=== PATIENT | female | born 1995 | race Caucasian/White ===

== ENCOUNTER 2019-02-09 04:30 | Inpatient (IN) ==
[2019-02-09] MEDS ORDERED: MAGNESIUM SULFATE 4 GM/S.W.I. 4 GM/100 ML IVPB IV ONE (04:38)
[2019-02-09] MEDS: LR 1,000 ML IV SCH ×4 (05:00→18:32)
[2019-02-09] MEDS ORDERED: APRESOLINE ONE (05:19)
[2019-02-09] MEDS ORDERED: APRESOLINE IV ONE ×2 (05:20→05:46)
[2019-02-09] MEDS ORDERED: CELESTONE SOLUSPAN IM ONE (05:25)
[2019-02-09] MEDS ORDERED: MAGNESIUM SULFATE 40 GM/S.W.I. 40 GM/1,000 ML IV.SOLN IV SCH (05:30)
[2019-02-09 06:02] LABS: BASO# 0.02 X1000 (0.0-0.2); BASO% 0.1 % (0.0-0.8); HEMATOCRIT 42.4 % (37.0-47.0); HEMOGLOBIN 15.6 g/dL (12.0-16.0); IMM GRAN# 0.06 X1000 (0.0-0.04); IMM GRAN% 0.3 % (0.0-0.5); LYMPH# 0.95 X1000 (1.2-3.4); LYMPH% 5.3 % (20.5-51.1); MCH 32.6 PG (27-31); MCHC 36.8 g/dL (33-37); MCV 88.7 FL (81-99); MONO# 0.43 X1000 (0.11-0.59); MONO% 2.4 % (1.7-9.3); MPV 10.4 FL (7.4-10.4); NEUT# 16.34 X1000 (1.4-6.5); NEUT% 91.9 % (42.2-75.2); PLT 258 X1000 (130-400); RBC 4.78 XMIL (4.2-5.4); RDW 12.2 % (11.5-14.5)
[2019-02-09 06:05] LABS: AGAP 16; ALBUMIN 2.7 g/dL (3.5-5.0); ALKALINE PHOSPHATASE 149 U/L (32-104); BUN 14 mg/dL (8-22); CALCIUM 8.4 mg/dL (8.8-10.2); CHLORIDE 103 mmol/L (98-107); COSMO 272; CREATININE 0.7 mg/dL (0.5-0.9); ESTIMATED GFR > 60; GLUCOSE 121 mg/dL (70-104); GOT 169 U/L (10-30); GPT 89 U/L (10-36); POTASSIUM 4.8 mmol/L (3.5-5.1); SODIUM 135 mmol/L (136-145); TCO2 17 mmol/L (25-35); TOTAL PROTEIN 5.2 g/dL (6.3-8.3); URIC ACID 6.5 mg/dL (2.4-5.7)
[2019-02-09] MEDS ORDERED: LABETALOL IV ONE (06:12)
[2019-02-09 06:30] LABS: BANDS 4 % (0-1); SEGS 89 % (42-75)
[2019-02-09 06:31] LABS: LYMPHS 7 % (21-51); POIKILOCYTOSIS 1+; STOMATOCYTES 1+
--- NOTE | 2019-02-09 06:39 | OB/GYN PROGRESS NOTE ---
Progress Note OB - . Patient Problems: Current Active Problems Problem Status Onset Severe pre-eclampsia Acute OB Progress Note: Laboratory Results - last 24 hr 02/09/19 02/09/19 04:56 04:56 WBC 17.80 H RBC 4.78 Hgb 15.6 Hct 42.4 MCV 88.7 MCH 32.6 H MCHC 36.8 RDW Std Deviation 12.2 Plt Count 258 MPV 10.4 Immature Gran % (Auto) 0.3 Neut % (Auto) 91.9 H Lymph % (Auto) 5.3 L [place] % (Auto) 2.4 Eos % (Auto) 0.0 Baso % (Auto) 0.1 Immature Gran # (Auto) 0.06 H Neut # (Auto) 16.34 H Lymph # (Auto) 0.95 L [place] # (Auto) 0.43 Eos # (Auto) 0.00 Baso # (Auto) 0.02 Segmented Neutrophils 89 H Band Neutrophils 4 H Lymphocytes 7 L Poikilocytosis 1+ Stomatocytes 1+ Sodium 135 L Potassium 4.8 Chloride 103 Carbon Dioxide 17 L Anion Gap 16 BUN 14 Creatinine 0.7 Estimated GFR/1.73 m2 > 60 BUN/Creatinine Ratio 20 Glucose 121 H Calculated Osmolality 272 Uric Acid 6.5 H Calcium 8.4 L Total Bilirubin 0.90 AST 169 H ALT 89 H Alkaline Phosphatase 149 H Total Protein 5.2 L Albumin 2.7 L Globulin 3.0 Albumin/Globulin Ratio 1.0 After 20mg Labetalol given, BP after 10min was 154/102. Will continue to serially check BPs. Patient currently without complaints. Laboratory findings discussed with patient and significant other. Discussed strong possibility of C/S if her BPs continue to be uncontrolled. Risks and benefits of C/S discussed, including, but not limited to, bleeding, infection, injury to surrounding organs, hysterectomy, post operative pain, need for re-operation, disability and/or . Patient expressed understanding. All questions answered. Patient agreeable with plan for delivery today. SVE: closed, thick, and high station GBS swab collected.
--- NOTE | 2019-02-09 07:00 | HISTORY AND PHYSICAL ---
CHIEF COMPLAINT: Possible seizure. HISTORY OF PRESENT ILLNESS: 23-year-old G2, P0-0-1-0 at 35 weeks and 0 days by stated DIEGO arrived via ambulance due to the patient's significant other witnessing a seizure. The patient reports that she has never had seizures before in her lifetime. The patient's significant reports patient was shaking her lower and upper extremities followed by an inability to recall what occurred and feeling sleepy suggesting an altered mental status. The patient also reported of having multiple "migraines" last night, with the lastest one prior to her seizure as "severe". The patient currently denies of any headache, vision changes, shortness of breath, chest pain, or right upper quadrant pain. The patient feels the baby move. The patient denies of any vaginal bleeding, leakage of fluid, contractions. The patient has care in [place]. Her supervisor network control operators is Dr. Ng. The patient reports that she has not had any complications during this thus far. PAST MEDICAL HISTORY: Denied. PAST SURGICAL HISTORY: Denied. PAST OBSTETRICAL HISTORY: Spontaneous x1. MEDICATIONS: None. ALLERGIES: Aspirin- patient unsure of reaction. SERVICER TRAVEL TRAILERS HISTORY: Denied of STDs or HIV. SOCIAL HISTORY: Denied of tobacco, alcohol use, or illicit drug use. FAMILY HISTORY: Non-contributory. labs are unavailable at this time. OBJECTIVE: Latest blood pressure 172/102 (multiple severe range pressures greater than 160s over greater than 100s-110s). Temperature 97.8 degrees, heart rate 120, SpO2 98% on room air. Respirations 20. General: No apparent distress. Alert and oriented x3. Appears somnolent CV: Tachycardic, regular rhythm. Pulmonary: Clear to auscultation bilaterally. No rhonchi, wheezing or rales. Abdomen:Soft, nontender to palpation, gravid. Extremities: 3+ deep tendon reflexes. No lower extremity edema. No clonus. Pelvis: Deferred for now. heart tones: 130s, moderate variability, no accelerations or decelerations present. Tocometer: irregular contractions noted. Bedside ultrasound: cephalic presentation, NICK 18.5; Estimated weight: 1924 g (based on stated DIEGO of 03/16/2019, EFW at 2nd percentile). LABORATORY: White blood cell count 17.8, hemoglobin 15.6, hematocrit 42.4, platelet 258,000. Creatinine 0.7, AST 169, ALT 89. Urine protein and urine creatinine pending; Urine dip protein: 3+ protein ASSESSMENT AND PLAN: A 23-year-old, G2, P0-0-1-0 at 35 weeks by stated DIEGO with: 1. Preeclampsia with severe features, suspected eclampsia. - Given severe range blood pressure, transaminitis, and HPI suggestive of a seizure, patient meets criteria for pre-eclampsia with severe features. - Patient's HPI suggest she had an eclamptic seizure. - Bed-side growth US revealed fetus is IUGR at 2nd percentile based on her stated DIEGO. - well-being: Category 1 tracings. - Patient started on magnesium for seizure prophylaxis. - Patient given 1 dose of betamethasone for lung maturity. - GBS culture to be collected. - I discussed the strong suspicion of preeclampsia with severe features with the patient and her significant other. Will treat the patient's severe range blood pressures accordingly. Thus far, patient has received a total of 15 mg of hydralazine and 20 of labetalol IV. Discussed recommendation for delivery today. Discussed possibility of section if maternal condition continues to deteriorate. If induction of labor initiated, we will start ampicillin for GBS prophylaxis due to GBS unknown status and prematurity. However, I discussed that she is remote from delivery given her unfavorable cervix and that an IOL would likely take hours/days. 2. IUGR -Delivery recommend -Strong possibility of baby being transferred to higher level of care. This was discussed with patient and family. -Patient will likely not be able to transfer to higher level of care for her baby prior to delivery given instability in persistent severe range blood pressures and risk of eclamptic seizure recurrence. [facility]
[2019-02-09] MEDS ORDERED: KEFZOL 1 GM/D5W 1 GM/50 ML IVPB IV PRN (07:25)
[2019-02-09] MEDS ORDERED: REGLAN PO ONE (07:25)
[2019-02-09 07:52] LABS: URINE SOURCE CATH
[2019-02-09 07:55] LABS: BILIRUBIN URINE NEGATIVE (NEGATIVE); BLOOD URINE 3+ (NEGATIVE); CLARITY VERY CLOUDY (CLEAR); COLOR YELLOW; GLUCOSE URINE NEGATIVE (NEGATIVE); KETONE URINE 1+(Small) mg/dL (NEGATIVE); LEUKOCYTES URINE TRACE (NEGATIVE); NITRITE URINE POSITIVE (NEGATIVE); PH URINE 6.5; UROBILINOGEN URINE NORMAL
[2019-02-09] MEDS ORDERED: BICITRA PO ONE (08:01)
[2019-02-09 08:03] LABS: UR AMPHETAMINES QUAL NONE DETECTED (NONE DETECT); UR BARBITUATES QUAL NONE DETECTED (NONE DETECT); UR BENZODIAZEPIN QUAL NONE DETECTED (NONE DETECT); UR CANNABINOIDS QUAL NONE DETECTED (NONE DETECT); UR COCAINE QUAL NONE DETECTED (NONE DETECT); UR METHADONE QUAL NONE DETECTED (NONE DETECT); UR METHAMPHETAMINE QUAL NONE DETECTED (NONE DETECT); UR OPIATES QUAL NONE DETECTED (NONE DETECT); UR OXYCODONE QUAL NONE DETECTED (NONE DETECT); UR PCP QUAL NONE DETECTED (NONE DETECT); UR PROPOXYPHENE QUAL NONE DETECTED (NONE DETECT); UR TCA QUAL NONE DETECTED (NONE DETECT)
[2019-02-09] MEDS: PEPCID PO ONE ×2 (08:15→10:13)
[2019-02-09] MEDS ORDERED: DURAMORPH ONE (08:40)
[2019-02-09] MEDS ORDERED: ZOFRAN ONE (08:41)
[2019-02-09] MEDS ORDERED: PITOCIN ONE (08:41)
[2019-02-09] MEDS ORDERED: XYLOCAINE-MPF 2% ONE (09:08)
[2019-02-09] MEDS ORDERED: DIPRIVAN 1% ONE (09:08)
[2019-02-09] MEDS ORDERED: OFIRMEV 1000 MG/ISOTONIC SOLN 1,000 MG/100 ML BOTTLE IV ONE (09:15)
[2019-02-09] MEDS: MAGNESIUM SULFATE 40 GM/S.W.I. 40 GM/1,000 ML IV.SOLN IV SCH (09:35)
[2019-02-09] MEDS ORDERED: DULCOLAX PR PRN (09:57)
[2019-02-09] MEDS ORDERED: PHENERGAN IM PRN (09:57)
[2019-02-09] MEDS ORDERED: MYLICON PO PRN (09:57)
[2019-02-09] MEDS ORDERED: DEMEROL PO PRN ×2 (09:57)
[2019-02-09] MEDS ORDERED: PITOCIN IM PRN (09:57)
[2019-02-09] MEDS ORDERED: AMBIEN PO PRN (09:57)
[2019-02-09] MEDS ORDERED: PITOCIN 20 UNITS/NS 20 UNITS/1,000 ML IV.SOLN IV ONE (09:57)
[2019-02-09] MEDS ORDERED: ATARAX PO PRN (09:57)
[2019-02-09] MEDS ORDERED: HYDROXYZINE IM PRN (09:57)
[2019-02-09] MEDS ORDERED: M-M-R II VACCINE SUBQ ONE (09:57)
[2019-02-09] MEDS ORDERED: DEMEROL IM PRN (09:57)
[2019-02-09] MEDS ORDERED: NORCO-5 PO PRN (09:57)
[2019-02-09] MEDS ORDERED: BOOSTRIX VACCINE IM ONE (09:57)
[2019-02-09] MEDS ORDERED: NORCO-10 PO PRN (09:57)
[2019-02-09] MEDS ORDERED: PITOCIN 10 UNITS/NS 1,000 ML IV SCH (10:00)
[2019-02-09] MEDS ORDERED: ZOFRAN ODT PO PRN (10:15)
[2019-02-09] MEDS ORDERED: NARCAN IV PRN (10:15)
[2019-02-09] MEDS ORDERED: BENADRYL IV PRN ×2 (10:15)
[2019-02-09] MEDS ORDERED: NARCAN INJ PRN (10:15)
[2019-02-09] MEDS ORDERED: ZOFRAN IV PRN ×3 (10:15)
[2019-02-09] MEDS ORDERED: PHENERGAN IV PRN (10:15)
[2019-02-09] MEDS ORDERED: MORPHINE PCA IV PRN (10:15)
[2019-02-09] MEDS ORDERED: SODIUM CHLORIDE 0.9% INJ PRN (10:15)
--- NOTE | 2019-02-09 10:52 | OPERATIVE NOTE ---
PROCEDURE DATE: 02/09/2019 PREOPERATIVE DIAGNOSIS: Intrauterine 35 weeks with eclampsia and HELLP syndrome, who was remote from delivery. POSTOPERATIVE DIAGNOSIS: Intrauterine 35 weeks with eclampsia and HELLP syndrome, who was remote from delivery, with operative delivery of a male infant, 3 pounds 11 ounces with Apgars of 1, 5 and 6 at 0900 hours on 02/09/2019. PROCEDURE: Primary low-transverse section. SURGEON: Dr. Mckeon. SPRINKLING TRUCK DRIVER: Earline Mcdowell RN. ANESTHESIA: Spinal and general, Ethan Duarte MD. FINDINGS: Normal-appearing uterus, tubes and ovaries. The placenta was small and scarred. COMPLICATIONS: Arm presentation. ESTIMATED BLOOD LOSS: 750 mL. SPECIMENS: Placenta to Pathology. DRAINS: Collazo to straight drain. COUNTS: All counts were correct x3. INDICATIONS: Patient is a 23-year-old white female, G 2, P 0, A 1 at 35 weeks gestation, who had a witnessed seizure early this morning at about 4 o'clock. The patient was brought to the hospital. Laboratory studies did show elevated liver enzymes and blood pressure was also elevated. The patient is remote from delivery with a known witnessed seizure and also evidence of HELLP syndrome. Patient counseled about the need to proceed with operative delivery due to remoteness from delivery. The patient was counseled about the risks of surgery, including bleeding, infection, bowel or bladder injury. DESCRIPTION OF PROCEDURE: The patient was taken to labor and delivery OR. Then, had spinal anesthesia placed. She was placed in the supine position with a roll under right hip, and then prepped and draped in a sterile fashion. Anesthesia was checked and she was still having some feeling on 1 side, as well as about periumbilically as well. The decision was made to do a general anesthetic and, once the general anesthetic was employed, then a Pfannenstiel skin incision was made in the lower abdomen using a scalpel. This was taken down sharply to the fascial layer. Small susu was made in the rectus fascia. Fascial incision was extended bilaterally by curved Gold scissors, and then the superior and inferior aspects of the rectus fascia were then bluntly and sharply dissected, and then the rectus muscle was divided in midline. Peritoneal layer was entered bluntly and this incision was extended superiorly and inferiorly with care taken to avoid the bladder. Bladder blade was placed into the abdominal cavity. A bladder reflection was created using Metzenbaum scissors, and then the bladder blade was placed back into the abdominal cavity. A transverse incision was made on lower uterine segment. This was then entranced into the amniotic cavity. It was accomplished. Clear fluid was noted, and then the hysterotomy incision was extended bilaterally with surgeon's fingers. Upon entry into the amniotic cavity, there was an arm presentation noted. So, this was maneuvered to present the head, and then once the head was positioned, we were able to push with gentle fundal pressure to deliver the fetus. The head was delivered atraumatically. Bulb suction of nose and mouth. Then the rest of the body was delivered atraumatically. Umbilical cord was clamped twice and cut. Infant handed to the nursery nurse in attendance for delivery. Cord blood sample was obtained at this time. Then the placenta was then manually extracted, and inspection showed 1 large pock adry and also some scarring indicating the long-term disease process. The placenta was also noted to be small for size. The placenta will be sent to Pathology. At this point in time, the uterus was exteriorized. Wet lap was placed around the uterus; dry lap was then used to curette the uterine cavity of clots and debris, and then the uterine incision was then closed using 0 chromic in a running locking fashion x1 and small area of oozing was noted at the mid point of the incision. This was made hemostatic with a [id number] stitch. Then a small area of oozing on the left corner was also made hemostatic with a [id number] stitch of 0 chromic. The posterior cul-de- sac was then irrigated copiously, and then the uterus was replaced back into the abdominal cavity. Pericolic gutters were cleansed using moist lap sponges, and then the uterine incision and bladder reflection were inspected. Good hemostasis was noted. The peritoneal incision was then closed using 2-0 chromic in a running fashion x1, and the rectus muscles then reapproximated with interrupted stitches of 2-0 chromic. The fascial incision was then closed using 0 PDS in a running fashion x1. Subcutaneous layer was then irrigated copiously. Electrocautery was used to obtain hemostasis, and skin was then reapproximated using vinny. Patient tolerated the procedure well, was taken to recovery in stable condition. All counts were correct x3. The patient had been on magnesium sulfate prior to surgery, and will be restarted on magnesium sulfate. The patient's blood pressure during surgery was doing very well, 120s over 70s at the end of surgery. cc: Ramo Mckeon III, MD
[2019-02-09 12:00] LABS: RAPID HIV PRESUMPTIVE NEGATIVE
[2019-02-09] MEDS: MYLICON PO SCH ×3 (12:35→21:26)
[2019-02-09 15:06] LABS: RUBELLA SCREEN NON IMMUNE (IMMUNE)
[2019-02-09] MEDS: OFIRMEV 1000 MG/ISOTONIC SOLN 1,000 MG/100 ML BOTTLE IV SCH ×2 (16:41→23:29)
[2019-02-09] MEDS ORDERED: PERICOLACE PO SCH (21:00)
[2019-02-10] MEDS: MAGNESIUM SULFATE 40 GM/S.W.I. 40 GM/1,000 ML IV.SOLN IV SCH ×3 (02:39→07:35)
[2019-02-10] MEDS: OFIRMEV 1000 MG/ISOTONIC SOLN 1,000 MG/100 ML BOTTLE IV SCH (06:26)
[2019-02-10 06:53] LABS: BASO# 0.01 X1000 (0.0-0.2); BASO% 0.1 % (0.0-0.8); HEMATOCRIT 36.9 % (37.0-47.0); HEMOGLOBIN 12.8 g/dL (12.0-16.0); IMM GRAN# 0.05 X1000 (0.0-0.04); IMM GRAN% 0.3 % (0.0-0.5); LYMPH# 1.53 X1000 (1.2-3.4); MCH 32.2 PG (27-31); MCHC 34.7 g/dL (33-37); MCV 92.7 FL (81-99); MONO# 1.07 X1000 (0.11-0.59); MPV 9.3 FL (7.4-10.4); NEUT# 12.57 X1000 (1.4-6.5); NEUT% 82.6 % (42.2-75.2); PLT 240 X1000 (130-400); RBC 3.98 XMIL (4.2-5.4); RDW 12.4 % (11.5-14.5); WBC 15.23 X1000 (4.8-10.8)
[2019-02-10 07:14] LABS: AGAP 11; ALBUMIN 2.5 g/dL (3.5-5.0); ALKALINE PHOSPHATASE 116 U/L (32-104); BUN 13 mg/dL (8-22); CHLORIDE 96 mmol/L (98-107); COSMO 261; CREATININE 0.8 mg/dL (0.5-0.9); ESTIMATED GFR > 60; GLUCOSE 128 mg/dL (70-104); GOT 54 U/L (10-30); GPT 50 U/L (10-36); SODIUM 129 mmol/L (136-145); TCO2 21 mmol/L (25-35); TOTAL PROTEIN 5.3 g/dL (6.3-8.3)
[2019-02-10 07:36] LABS: CALCIUM 6.3 mg/dL (8.8-10.2)
[2019-02-10] MEDS: MYLICON PO SCH ×4 (09:03→21:32)
[2019-02-10] MEDS: COLACE PO SCH ×2 (09:03→21:32)
[2019-02-10] MEDS: CALTRATE 600 + D PO SCH ×2 (09:41→21:32)
--- NOTE | 2019-02-10 10:47 | OB/GYN PROGRESS NOTE ---
Progress Note OB - . Patient Problems: Current Active Problems Problem Status Onset Status post primary low transverse section Acute Severe pre-eclampsia Acute Eclampsia Acute HELLP syndrome Acute OB Progress Note: Vital Signs - 24 hr 02/09/19 11:00 02/09/19 12:30 02/09/19 15:00 Temperature 98.9 F 96.5 F L 96.1 F L Pulse Rate 91 H 86 90 Respiratory Rate 16 12 16 Blood Pressure 132/85 127/75 137/85 O2 Sat by Pulse Oximetry 97 97 97 02/09/19 17:25 02/09/19 19:40 02/10/19 07:35 Temperature 95.9 F L Pulse Rate 83 90 91 H Respiratory Rate 16 16 16 Blood Pressure 120/87 133/92 O2 Sat by Pulse Oximetry 97 97 02/10/19 08:05 Temperature Pulse Rate 88 Respiratory Rate 16 Blood Pressure O2 Sat by Pulse Oximetry Laboratory Results - last 24 hr 02/09/19 02/09/19 02/09/19 04:50 10:55 10:55 WBC RBC Hgb Hct MCV MCH MCHC RDW Std Deviation Plt Count MPV Immature Gran % (Auto) Neut % (Auto) Lymph % (Auto) [place] % (Auto) Eos % (Auto) Baso % (Auto) Immature Gran # (Auto) Neut # (Auto) Lymph # (Auto) [place] # (Auto) Eos # (Auto) Baso # (Auto) Sodium Potassium Chloride Carbon Dioxide Anion Gap BUN Creatinine Estimated GFR/1.73 m2 BUN/Creatinine Ratio Glucose 151 H Calculated Osmolality Calcium Magnesium Total Bilirubin AST ALT Alkaline Phosphatase Total Protein Albumin Globulin Albumin/Globulin Ratio HIV 1&2 Antibody Rapid PRESUMPTIVE NEGATIVE Rubella Immunity Screen NON IMMUNE H Antibody Identification Anti-D 02/10/19 02/10/19 02/10/19 06:21 06:21 06:21 WBC 15.23 H RBC 3.98 L Hgb 12.8 D Hct 36.9 L MCV 92.7 MCH 32.2 H MCHC 34.7 RDW Std Deviation 12.4 Plt Count 240 MPV 9.3 Immature Gran % (Auto) 0.3 Neut % (Auto) 82.6 H Lymph % (Auto) 10.0 L [place] % (Auto) 7.0 Eos % (Auto) 0.0 Baso % (Auto) 0.1 Immature Gran # (Auto) 0.05 H Neut # (Auto) 12.57 H Lymph # (Auto) 1.53 [place] # (Auto) 1.07 H Eos # (Auto) 0.00 Baso # (Auto) 0.01 Sodium 129 L Potassium 5.0 Chloride 96 L Carbon Dioxide 21 L Anion Gap 11 BUN 13 Creatinine 0.8 Estimated GFR/1.73 m2 > 60 BUN/Creatinine Ratio 16 Glucose 128 H Calculated Osmolality 261 Calcium 6.3 L* D Magnesium 9.3 H* Total Bilirubin 0.30 AST 54 H ALT 50 H Alkaline Phosphatase 116 H Total Protein 5.3 L Albumin 2.5 L Globulin 3.0 Albumin/Globulin Ratio 1.0 HIV 1&2 Antibody Rapid Rubella Immunity Screen Antibody Identification 02/10/19 09:45 WBC RBC Hgb Hct MCV MCH MCHC RDW Std Deviation Plt Count MPV Immature Gran % (Auto) Neut % (Auto) Lymph % (Auto) [place] % (Auto) Eos % (Auto) Baso % (Auto) Immature Gran # (Auto) Neut # (Auto) Lymph # (Auto) [place] # (Auto) Eos # (Auto) Baso # (Auto) Sodium Potassium Chloride Carbon Dioxide Anion Gap BUN Creatinine Estimated GFR/1.73 m2 BUN/Creatinine Ratio Glucose Calculated Osmolality Calcium Magnesium 8.0 H Total Bilirubin AST ALT Alkaline Phosphatase Total Protein Albumin Globulin Albumin/Globulin Ratio HIV 1&2 Antibody Rapid Rubella Immunity Screen Antibody Identification S: Patient without complaints. She does report of some blurred vision; states he r eyes is sluggish in focusing this AM. Denies of any headache, shortness of breath, chest pain, or right upper quadrant pain. Denies of fever, chills, N/V. Tolerating liquids. Lochia light. Pain well controlled; reports of using her OFFICE MACHINE SERVICE SUPERVISOR once last night. Has not ambulated yet due to being on Mg. Breast-pumping without concerns. O: Vitals and UOP reviewed Gen: NAD; AAOx3 CV: RRR Pulm: CTAB; no rhonchi, wheezing or rales Abd: soft, non-tender to palpation; non-distended; hypoactive bowel sounds; fundus firm and well below umbilicus Incision: dressing clear, dry, and intact Ext: no LE TTP, no clonus, DTRs 1+ to absent A&P: 23yo s/p CD#1 at 35 weeks due to Pre-eclampsia with severe features, suspected eclampsia, 1. POD#1 - VS grossly wnl post- - UOP adequate - Tylenol discontinued due to transaminitis - [place]/Percocet discontinued and replaced with Oxycodone IR - Remove dressing later today 2. Pre-eclampsia with severe features, suspected eclampsia - Mg level checked earlier this AM and found to be elevated at 9.3. Mg infusion decreased to 1g/hr. Mg infusion was then held once DTRs was noted on exam. Repeat Mg level 8.0. Repeat exam on DTRs now at +1. Mg infusion resumed at 1g/hr. - BPs mild to normal range - Discussed with patient in monitoring her BPs for 3-4 days in-house and close follow up outpatient 3. Transaminitis -Suspect secondary to pre-eclampsia severe feature -Will trend CMP 4. Rubella NON-immune - MMR booster 5. Rh NEGATIVE -Baby O positive -RhoGAM warranted (Late- entry note)
[2019-02-10] MEDS: MOTRIN PO PRN ×2 (12:09→21:35)
[2019-02-10] MEDS ORDERED: BLISTEX MEDICATED BERRY LIP BALM TOP PRN (13:59)
[2019-02-10] MEDS: LR 1,000 ML IV SCH ×5 (14:52→23:17)
[2019-02-11] MEDS: MAGNESIUM SULFATE 40 GM/S.W.I. 40 GM/1,000 ML IV.SOLN IV SCH (05:26)
[2019-02-11] MEDS: OXY IR PO PRN ×2 (05:54→14:06)
[2019-02-11] MEDS: MOTRIN PO PRN ×2 (05:54→14:06)
[2019-02-11 06:56] LABS: ESTIMATED GFR > 60
[2019-02-11 07:00] LABS: AGAP 9; ALBUMIN 2.3 g/dL (3.5-5.0); ALKALINE PHOSPHATASE 111 U/L (32-104); BUN 17 mg/dL (8-22); CHLORIDE 105 mmol/L (98-107); COSMO 273; CREATININE 0.6 mg/dL (0.5-0.9); GLUCOSE 93 mg/dL (70-104); GOT 28 U/L (10-30); GPT 31 U/L (10-36); POTASSIUM 4.9 mmol/L (3.5-5.1); SODIUM 136 mmol/L (136-145); TCO2 23 mmol/L (25-35); TOTAL PROTEIN 4.5 g/dL (6.3-8.3)
[2019-02-11 07:03] LABS: CALCIUM 6.7 mg/dL (8.8-10.2)
[2019-02-11] MEDS: CALTRATE 600 + D PO SCH ×2 (09:11→20:53)
[2019-02-11] MEDS: MYLICON PO SCH ×4 (09:11→20:54)
[2019-02-11] MEDS: COLACE PO SCH ×2 (09:11→20:53)
--- NOTE | 2019-02-11 09:15 | OB/GYN PROGRESS NOTE ---
Progress Note OB - . Patient Problems: Current Active Problems Problem Status Onset Status post primary low transverse section Acute Severe pre-eclampsia Acute Eclampsia Acute HELLP syndrome Acute OB Progress Note: Vital Signs - 24 hr 02/10/19 11:00 02/10/19 15:00 02/10/19 19:00 Temperature 96.6 F L 96.2 F L 96.6 F L Pulse Rate 89 75 88 Respiratory Rate 16 16 16 Blood Pressure 150/89 154/89 151/87 O2 Sat by Pulse Oximetry 98 97 98 02/10/19 21:00 02/10/19 21:40 02/10/19 22:40 Temperature Pulse Rate 80 90 84 Respiratory Rate 16 18 16 Blood Pressure 130/83 139/88 135/81 O2 Sat by Pulse Oximetry 98 98 97 02/11/19 00:00 02/11/19 01:00 02/11/19 02:40 Temperature Pulse Rate 70 72 82 Respiratory Rate 16 16 16 Blood Pressure 143/78 141/81 138/78 O2 Sat by Pulse Oximetry 97 97 97 02/11/19 05:17 02/11/19 07:45 Temperature 96.8 F L Pulse Rate 76 90 Respiratory Rate 16 18 Blood Pressure 134/80 148/86 O2 Sat by Pulse Oximetry 97 97 02/09/19 06:28 Group B Streptococcus Culture - Final Vaginal No Group B Strep isolated Laboratory Results - last 24 hr 02/10/19 02/10/19 02/11/19 06:49 09:45 06:17 Sodium 136 Potassium 4.9 Chloride 105 Carbon Dioxide 23 L Anion Gap 9 BUN 17 Creatinine 0.6 Estimated GFR/1.73 m2 > 60 BUN/Creatinine Ratio 28 Glucose 93 Calculated Osmolality 273 Calcium 6.7 L* Magnesium 8.0 H Total Bilirubin 0.30 AST 28 ALT 31 Alkaline Phosphatase 111 H Total Protein 4.5 L Albumin 2.3 L Globulin 2.0 Albumin/Globulin Ratio 1.0 ABO/Rh O NEGATIVE Screen NEGATIVE RhIG Candidate? YES S: Patient without complaints. Reports her blurred vision now resolved. Denied of any headache, shortness of breath, chest pain, or right upper quadrant pain. Denied of acroparesthesia or muscle stiffness. Denies of fever, chills, N/V. Tolerating PO. Voiding without difficulty. Ambulated to bathroom. Breast-pumping with minimal expressing of milk. Abstinence for control. O: BPs mild to normal range overnight Gen: NAD; AAOx3 CV: RRR Pulm: CTAB; no rhonchi, wheezing or rales Abd: soft, non-tender to palpation; some-distension; active bowel sounds; fundus firm and well below umbilicus Incision: clear, dry, and intact with vinny Ext: no LE TTP, no clonus, DTRs 2+; trace LE edema [place] sign negative A&P: 23yo s/p CD#1 at 35 weeks due to Pre-eclampsia with severe features, suspected eclampsia, 1. POD#2 - VS grossly wnl - Ambulate ad cayla - Discussed 2. Pre-eclampsia with severe features, suspected eclampsia - s/p Mg - Continue to monitor BP for 3-4 days in-house and close follow up outpatient 3. Hypocalcemia -Suspect secondary to Mg IV/ Pre-E -No signs/symptoms relating to hypocalcemia -Continue Caltrate 600 + D 4. Transaminitis- Resolved now -Suspect secondary to pre-eclampsia severe feature 5. Rubella NON-immune - MMR booster 6. Rh NEGATIVE -Baby O positive; screen negative -RhoGAM warranted
[2019-02-11 16:51] LABS: HIV ANTIBODY SCREEN SEE COMMENTS
[2019-02-12] MEDS: MOTRIN PO PRN ×2 (00:31→20:02)
[2019-02-12] MEDS: OXY IR PO PRN (00:31)
--- NOTE | 2019-02-12 07:55 | OB/GYN PROGRESS NOTE ---
Progress Note OB - . Patient Problems: Current Active Problems Problem Status Onset Status post primary low transverse section Acute Severe pre-eclampsia Acute Eclampsia Acute HELLP syndrome Acute OB Progress Note: Vital Signs - 24 hr 02/11/19 11:00 02/11/19 15:30 02/11/19 20:36 Temperature 97.1 F L 97 F L 98.1 F Pulse Rate 90 77 86 Respiratory Rate 20 18 20 Blood Pressure 132/76 144/90 155/93 O2 Sat by Pulse Oximetry 96 96 100 02/12/19 00:26 02/12/19 03:57 Temperature 97.8 F 97.4 F L Pulse Rate 75 75 Respiratory Rate 20 18 Blood Pressure 145/94 133/88 O2 Sat by Pulse Oximetry 98 97 Laboratory Results - last 24 hr 02/09/19 12:00 HIV 1&2 Antibody Screen SEE COMMENTS HPI: Pt seen and examined. Currently w/o complaints. Pain well controlled. Ambulating and urinating without difficiulty. Tolerating regular diet, Denies N/V. Denies CUEVA/scotomata/RUQ pain/fever/chills/SOB/CP. VS: Please see above, BP mildly elevated PHYSICAL EXAM: GEN: NAD; AAOx3 CV: RRR RESP: CTAB; no rhonchi, wheezing or rales ABD: soft, non-tender to palpation; non-distended; active bowel sounds; fundus firm and below umbilicus EXT: no LE TTP, DTR +2 A&P: 23yo POD#3 s/p CD at 35 weeks due to Pre-eclampsia with severe features, suspected eclampsia, -s/p 24 hrs PP Mag sulfate -BP slightly elevated, will start Labetalol 100mg PO BID -Will continue to monitor BPs -Hypocalcemia, s/p Caltrate +vit D, CMP pending -LFTs tending down -OOB to ambulation -regular diet -con't routine PP care
[2019-02-12 07:58] LABS: HEPATITIS B SURFACE ANTIGEN SEE COMMENTS
[2019-02-12 08:03] LABS: AGAP 5; ALBUMIN 2.2 g/dL (3.5-5.0); ALKALINE PHOSPHATASE 122 U/L (32-104); BUN 10 mg/dL (8-22); CHLORIDE 106 mmol/L (98-107); COSMO 272; CREATININE 0.5 mg/dL (0.5-0.9); ESTIMATED GFR > 60; GLUCOSE 90 mg/dL (70-104); GOT 48 U/L (10-30); GPT 37 U/L (10-36); POTASSIUM 4.4 mmol/L (3.5-5.1); SODIUM 137 mmol/L (136-145); TCO2 26 mmol/L (25-35); TOTAL PROTEIN 4.8 g/dL (6.3-8.3)
[2019-02-12] MEDS: TRANDATE PO SCH ×2 (08:46→20:02)
[2019-02-12] MEDS: CALTRATE 600 + D PO SCH (08:46)
[2019-02-12] MEDS: MYLICON PO SCH ×4 (08:47→20:02)
[2019-02-12] MEDS: COLACE PO SCH ×2 (08:47→20:02)
[2019-02-12] MEDS ORDERED: TRANDATE PO ONE (21:35)
[2019-02-12] MEDS ORDERED: APRESOLINE IV ONE (22:18)
[2019-02-13 07:16] LABS: AGAP 10; ALBUMIN 2.4 g/dL (3.5-5.0); ALKALINE PHOSPHATASE 150 U/L (32-104); BUN 9 mg/dL (8-22); CALCIUM 7.7 mg/dL (8.8-10.2); CHLORIDE 106 mmol/L (98-107); COSMO 277; CREATININE 0.4 mg/dL (0.5-0.9); ESTIMATED GFR > 60; GLUCOSE 83 mg/dL (70-104); GOT 50 U/L (10-30); GPT 47 U/L (10-36); POTASSIUM 4.4 mmol/L (3.5-5.1); SODIUM 140 mmol/L (136-145); TCO2 25 mmol/L (25-35)
[2019-02-13 07:44] VITALS: BP 163/103
[2019-02-13] MEDS ORDERED: TRANDATE PO SCH ×2 (07:45→09:00)
[2019-02-13] MEDS: COLACE PO SCH (09:17)
[2019-02-13] MEDS: CALTRATE 600 + D PO SCH (09:18)
[2019-02-13] MEDS: OXY IR PO PRN (09:18)
[2019-02-13] MEDS: MYLICON PO SCH (09:18)
[2019-02-13] MEDS: MOTRIN PO PRN (09:18)
--- NOTE | 2019-02-13 09:38 | DISCHARGE SUMMARY ---
ADMISSION DATE: 02/09/2019 DISCHARGE DATE: Sola is a 23-year-old 2, para 0, now 1 who was admitted through the emergency room at 35 weeks gestation by stated DIEGO. She presented to the emergency room via ambulance after a witnessed seizure at home. She presents with elevated blood pressures, proteinuria, ultrasound indicating growth restriction. The diagnosis of eclamptic seizure, preeclampsia with severe features was made. The patient was admitted for induction of labor, started her on magnesium neuro prophylaxis and group B strep prophylaxis with ampicillin. Early assessment and management of blood pressure revealed blood pressures difficult to control after IV labetalol and hydralazine. As the patient was remote from delivery, difficult to control blood pressures, the decision, in consultation with the parents was made to perform a primary section. Please see separate operative note for details of the proceedure. Her postoperative course is complicated by continued hypertension. On postoperative day #1, she is ambulating, voiding, tolerating a regular diet. Blood pressures remained fairly good; however, on postoperative day #2, blood pressures started to creep up. She had blood pressures in the 150s systolic range. Postoperative day #3, she was given labetalol 200 b.i.d., climbing to 400 b.i.d. to get optimal results. On postoperative day #4, the hemoglobin was 12.8, incision clean, dry and intact, ambulating, voiding, tolerating a regular diet, blood pressure controlled with labetalol 400 b.i.d., she is discharged home in stable condition. She is asked to follow up in the office in 1 week for blood pressure check, incision check and skin clip removal. Call the office for pain, fever greater than 100.4, abnormal uterine bleeding. Maintain pelvic rest and regular diet. Continue her vitamin with iron. A prescription is provided for Motrin, Percocet and labetalol 400 b.i.d. cc: Ramo Mckeon III, MD [facility]
== END 2019-02-13 09:40 | disposition home or self-care (01) | DRG 788 ==
LOC: P.OPLD 04:30 → P.LD 04:54
PROVIDERS: ADMIT Obstetrics & Gynecology; ATTEND Obstetrics & Gynecology Obstetrics
CPT/HCPCS: 36415; 80053; 80104; 80301; 80305; 81003; 82947; 83735; 84156; 84550; 85025; 85461; 86592; 86701; 86703; 86762; 86850; 86870; 86900; 86901; 87070; 87340; 87389; 87390; 87491; 87591; 94799; A9270; G0431; G0434; G0477; J0131; J0360; J0690; J0702; J2270; J2274; J2275; J2405; J2590; J2790; J3475; J7120; Q9974